=== PATIENT | male | born 2000 | race Hispanic/Latino ===

== ENCOUNTER 2022-06-10 14:45 | Emergency (ER) | payer SELFPAY ==
[~2022-06-10] VITALS: Ht 195.6 cm; Wt 127.0 kg
--- NOTE | 2022-06-10 14:52 | NUR ---
ARRIVAL PRESENTED TO ED RM#5 AMBULATORY WITH C/O BACK PAIN THAT STARTED ON THURSDAY AFTER LIFTING AN ICE CHEST. WAS SEEN AT [facility] ED ON THURSDAY AND GIVEN 2 STERIOD SHOTS AND MUSCLE RELAXER X1 ALONG WITH RX FOR MUSCLE RELAXER AND IBUPROFEN. VS OBTAINED. DR. FARR NOTIFIED OF PATIENT ARRIVAL.
[2022-06-10 15:05] VITALS: BP 148/57
--- NOTE | 2022-06-10 15:14 | ER.PDOC ---
General Chief Complaint: Back Pain/Injury Stated Complaint: BACK PAIN Time seen by MD: 15:11 Source: patient Exam Limitations: no limitations History of Present Illness Initial Comments Low back pain for 4 days. Patient was lifting and felt a pop in the lower back and has been hurting since then. He was seen in [place] emergency room and given ibuprofen and muscle relaxant. He is not feeling better. No numbness or tingling of lower extremities. No radiation to lower extremities. No urinary or fecal incontinence. Severity/Quality: moderate Method of Injury: lifting Associated Symptoms: lower back pain Allergies: Coded Allergies: No Known Allergies (Unverified , 06/10/22) Past Medical History Medical History: no pertinent history Surgical History: no surgical history Family History Significant Family History: no pertinent family hx Social History Smoking: non-smoker Alcohol Use: none Drug Use: none Review of Systems Constitutional: no symptoms reported EENTM: no symptoms reported Respiratory: no symptoms reported Cardiovascular: no symptoms reported Gastrointestinal: no symptoms reported Musculoskeletal: see HPI All Other Systems: Reviewed and Negative Physical Exam General Appearance: No Apparent Distress, WD/WN HEENT: PERRL/EOMI, Normal ENT Inspection, TMs Normal, Pharynx Normal Neck: Non-Tender, Normal Alignment Cardiovascular/Respiratory: Regular Rate, Rhythm, No M/R/G, Normal Peripheral Pulses, No JVD, Normal Breath Sounds, No Respiratory Distress Gastrointestinal: Normal Bowel Sounds, No Organomegaly, No Pulsatile Mass, Non Tender, Soft Back: Muscle Spasm, Vertebral Tenderness (L spine) Extremities: No Evidence of Injury, Normal Range of Motion, Non-Tender, No Pedal Edema, Pelvis Stable Neuro/Psych: Alert, housekeeping supervisor nml/symmetrical, mood/effect nml, No Motor/Sensory Deficits, Relexes nml Skin: Normal Color, Warm/Dry Results/Orders Results/Orders Orders - DANGELO FARR MD Xr Lspine 2-3v (06/10/22 15:08) Vital Signs Date Time Temp Pulse Resp B/P (MAP) Pulse Ox O2 Delivery O2 Flow Rate FiO2 06/10/22 15:05 98.1 70 16 06/10/22 15:05 98.1 70 16 148/57 (87) 99 Room Air* 0 21 06/10/22 15:05 98.1 70 16 99 Progress Progress X-rays of L-spine show no fracture. Patient refused to have pain medication here. ER DEPART Departure Time of Disposition: 16:14 Disposition: 01 HOME / SELF CARE / HOMELESS Impression: Primary Impression: Low back pain Additional Impression: Lumbar sprain Condition: Stable Referrals: PCP,UNKNOWN (PCP) PRIMARY CARE PROVIDER Additional Instructions: Tramadol Continue with muscle relaxants Ibuprofen Follow-up with your PCP in 1 week Return to ED if worsening pain or concerns Duration or Time Spent with Pa: 10 min Problem Qualifiers Primary Impression: Low back pain Chronicity: acute Back pain laterality: unspecified Sciatica presence: without sciatica Qualified Codes: M54.50 - Low back pain, unspecified Additional Impression: Lumbar sprain Encounter type: initial encounter Qualified Codes: S33.5XXA - Sprain of ligaments of lumbar spine, initial encounter DANGELO FARR MD Jun 10, 2022 15:13
--- NOTE | 2022-06-10 15:39 | DIREP ---
PROCEDURE:XRAY SPINE LUMBAR 2-3 VWS COMPARISON:None. INDICATIONS:pain/injury TECHNIQUE:AP, lateral, and coned down lateral views of the lumbar spine are provided. FINDINGS: ALIGNMENT:Normal. VERTEBRAE:Normal. DISK SPACES:Normal. SPONDYLOLISTHESIS:None. SACROILIAC JOINTS:Normal. OTHER:Normal. CONCLUSION:Normal radiographs of the lumbar spine. Dictated by: Eliel Atkins M.D. on 06/10/2022 at 03:36 PM
== END 2022-06-10 16:21 | disposition home or self-care (01) ==
LOC: ER 14:45
DX: S33.5XXA Sprain of ligaments of lumbar spine, initial encounter (principal); M54.50 Low back pain, unspecified; X50.0XXA Overexertion from strenuous movement or load, initial encounter; Y93.89 Activity, other specified; Y92.89 Other specified places as the place of occurrence of the external cause; Y99.8 Other external cause status
CPT/HCPCS: 72100; 99283